=== PATIENT | female | born 1965 | race African-American/Black ===

== ENCOUNTER 2017-03-09 23:35 | Emergency (ER) | payer OTHER ==
[~2017-03-09] VITALS: Ht 162.6 cm; Wt 95.5 kg
[~2017-03-09 23:35] MED LIST: CARI350T29 PO; HYDR-762 PO; IBUP-1542 PO; PRED20TA PO; TRAM50TA2 PO
[2017-03-10 00:01] VITALS: Ht 162.6 cm; Wt 95.5 kg
[2017-03-10 03:23] LABS: URINE BLOOD (Dip) POC Negative (NEGATIVE)
[2017-03-10 03:29] LABS: ADD SCAN DIFF NO
[2017-03-10 03:31] LABS: BASOPHILS % 0.6 % (0.0-2.0); EOSINOPHILS # 0.4 10^3/ul (0.0-0.5); EOSINOPHILS % 5.7 % (0.0-7.0); HEMATOCRIT 43.8 % (37.0-47.0); HEMOGLOBIN 14.5 g/dl (12.0-16.0); LYMPHOCYTES # 2.1 10^3/ul (0.8-2.9); LYMPHOCYTES % 32.4 % (15.0-51.0); MEAN CORPUSCULAR HEMOGLOBIN 32.2 pg (29.0-33.0); MEAN CORPUSCULAR HGB CONC 33.1 g/dl (32.0-37.0); MEAN CORPUSCULAR VOLUME 97.1 fl (82.0-101.0); MEAN PLATELET VOLUME 10.3 fl (7.4-10.4); MONOCYTE # 0.4 10^3/ul (0.3-0.9); MONOCYTES % 6.5 % (0.0-11.0); NEUTROPHIL # 3.5 10^3/ul (1.6-7.5); NEUTROPHILS % 54.6 % (39.0-77.0); PLATELET COUNT 320 10^3/UL (140-415); RED BLOOD COUNT 4.51 10^6/ul (4.20-5.40); RED CELL DISTRIBUTION WIDTH 12.7 % (11.5-14.5); WHITE BLOOD COUNT 6.3 10^3/ul (4.8-10.8)
[2017-03-10 03:34] LABS: ALBUMIN 4.5 g/dl (3.3-4.9); CHLORIDE 107 mmol/L (97-110); INR 0.91; PROTIME 12.2 Sec (12.2-14.2); SODIUM 145 mmol/L (135-144)
[2017-03-10 03:35] LABS: PARTIAL THROMBOPLASTIN TIME 26.3 Sec (25.0-35.0); POTASSIUM 3.7 mmol/L (3.5-5.1)
[2017-03-10 03:37] LABS: ALANINE AMINOTRANSFERASE 44 IU/L (13-69); ALBUMIN/GLOBULIN RATIO 1.25; ALKALINE PHOSPHATASE 129 IU/L (42-121); ANION GAP 16 (8-16); ASPARTATE AMINO TRANSFERASE 47 IU/L (15-46); BILIRUBIN,INDIRECT 0.6 mg/dl (0-1.1); BILIRUBIN,TOTAL 0.6 mg/dl (0.2-1.3); BLOOD UREA NITROGEN 18 mg/dl (7-20); CARBON DIOXIDE 26 mmol/L (21-31); CREATININE 0.77 mg/dl (0.44-1.00); TOTAL PROTEIN 8.1 g/dl (6.1-8.1)
[2017-03-10 03:38] LABS: CALCIUM 9.2 mg/dl (8.4-10.2); GLUCOSE 108 mg/dl (70-220)
[2017-03-10 03:47] LABS: B-TYPE NATRIURETIC PEPTIDE 88 PG/ML (0-125)
[2017-03-10 04:07] LABS: TROPONIN-I < 0.012 ng/ml (0.00-0.12)
--- NOTE | 2017-03-10 04:09 | RADRPT ---
PROCEDURE: XR Chest. CLINICAL INDICATION: Chest Pain. TECHNIQUE: Portable single view of the chest COMPARISON: None. FINDINGS: The heart size and pulmonary vascularity are top normal. Lung volumes are slightly reduced but no d efinite focal infiltrate or pleural effusion is seen. No bony abnormality is seen. IMPRESSION: Shallow lung inflation. Top normal heart size and pulmonary vascularity. RPTAT: HLBE Yu Perry, Physician Date Time Electronically viewed and signed by Yu Perry, Physician on 03/10/2017 04:09 JIMBO/
--- NOTE | 2017-03-10 05:43 | ERD ---
ER Documentation Chief Complaint Date/Time DATE: 03/10/17 TIME: 05:41 Chief Complaint intermittent chest pain x 2 weeks worst today HPI 52-year-old female complains of lower back pain that is acute on chronic in nature. Chest pain that was noted in triage was falls. Patient denies any active chest pain or any chest pain at any time the past 2 weeks but does complain of back pain on and off for the past 2 or 3 days is gotten progressively worse. Denies bowel or bladder incontinence. Denies any other current issues. Pain is mild to moderate intensity patient is very lethargic upon arrival to the ER is obvious using pain medications at home to which he admits ROS All systems reviewed and are negative except as per history of present illness. Medications Home Meds Active Scripts Ibuprofen* (Motrin*) 600 Mg Tab, 600 MG PO Q6, #30 TAB Prov:ISABELL HUANG MD 04/01/16 Prednisone* (Prednisone*) 20 Mg Tab, 40 MG PO DAILY for 4 Days, TAB Prov:ISABELL HUANG MD 04/01/16 Carisoprodol* (Carisoprodol*) 350 Mg Tablet, 350 MG PO Q8 Y for MUSCLE SPASMS, # 20 TAB Prov:ISABELL HUANG MD 04/01/16 Tramadol HCl (Tramadol HCl) 50 Mg Tablet, 50 MG PO Q4 Y for PAIN, #20 TAB Prov:ISABELL HUANG MD 04/01/16 Hydrocodone Bit-Acetaminophen* ([place]*) 10-325 Mg Tablet, 1 TAB PO Q6 Y for PAIN , #7 TAB Prov:MARINE PEREIRA MD 10/13/15 Allergies Allergies: Coded Allergies: No Known Allergy (Unverified , 12/25/12) PMhx/Soc History of Surgery: No Anesthesia Reaction: No Hx Neurological Disorder: No Hx Respiratory Disorders: No Hx Cardiac Disorders: No Hx Psychiatric Problems: Yes (anxiety, depression) Hx Miscellaneous Medical Probl: Yes (sciatica) Hx Alcohol Use: Yes (occasionally) Hx Substance Use: No Hx Tobacco Use: Yes (daily) Smoking Status: Current every day smoker Physical Exam Vitals Vital Signs Date Time Temp Pulse Resp B/P Pulse Ox O2 Delivery O2 Flow Rate FiO2 03/10/17 05:30 97.9 73 16 188/93 Room Air 03/10/17 00:01 97.8 84 20 139/91 98 Physical Exam Const: [] Head: Atraumatic Eyes: Normal Conjunctiva ENT: Normal External Ears, Nose and Mouth. Neck: Full range of motion..~ No meningismus. Resp: Clear to auscultation bilaterally Cardio: Regular rate and rhythm, no murmurs Abd: Soft, non tender, non distended. Normal bowel sounds Skin: No petechiae or rashes Back: No midline or flank tenderness Ext: No cyanosis, or edema Neur: Awake and alert Psych: Normal Mood and Affect Result Diagram: 03/10/17 0300 03/10/17 0300 Results 24 hrs Laboratory Tests Test 03/10/17 03:00 03/10/17 03:24 White Blood Count 6.310^3/ul Red Blood Count 4.5110^6/ul Hemoglobin 14.5g/dl Hematocrit 43.8% Mean Corpuscular Volume 97.1fl Mean Corpuscular Hemoglobin 32.2pg Mean Corpuscular Hemoglobin Concent 33.1g/dl Red Cell Distribution Width 12.7% Platelet Count 70471^3/UL Mean Platelet Volume 10.3fl Neutrophils % 54.6% Lymphocytes % 32.4% Monocytes % 6.5% Eosinophils % 5.7% Basophils % 0.6% Nucleated Red Blood Cells % 0.0/100WBC Neutrophils # 3.510^3/ul Lymphocytes # 2.110^3/ul Monocytes # 0.410^3/ul Eosinophils # 0.410^3/ul Basophils # 0.010^3/ul Nucleated Red Blood Cells # 0.010^3/ul Prothrombin Time 12.2Sec Prothrombin Time Ratio 1.0 INR International Normalized Ratio 0.91 Activated Partial Thromboplast Time 26.3Sec Sodium Level 145mmol/L Potassium Level 3.7mmol/L Chloride Level 107mmol/L Carbon Dioxide Level 26mmol/L Anion Gap 16 Blood Urea Nitrogen 18mg/dl Creatinine 0.77mg/dl Glucose Level 108mg/dl Calcium Level 9.2mg/dl Total Bilirubin 0.6mg/dl Direct Bilirubin 0.00mg/dl Indirect Bilirubin 0.6mg/dl Aspartate Amino Transf (AST/SGOT) 47IU/L Alanine Aminotransferase (ALT/SGPT) 44IU/L Alkaline Phosphatase 129IU/L Troponin I < 0.012ng/ml B-Type Natriuretic Peptide 88PG/ML Total Protein 8.1g/dl Albumin 4.5g/dl Globulin 3.60g/dl Albumin/Globulin Ratio 1.25 Bedside Urine pH (LAB) 5.5 Bedside Urine Protein (LAB) Negative Bedside Urine Glucose (UA) Negative Bedside Urine Ketones (LAB) Trace Bedside Urine Blood Negative Bedside Urine Nitrite (LAB) Negative Bedside Urine Leukocyte Esterase (L Negative Procedures/MDM EKG: Rate/Rhythm: [Normal Sinus Rhythm] QRS, ST, T-waves: [No changes consistent w/ acute ischemia] Impression: [No evidence of ischemia or arrhythmia] Chest X-ray 1V Interpreted by me: Soft Tissue: No acute abnormalities Bones: No acute abnormalities Mediastinum/Cardiac Silhouette/Lungs: [No acute abnormalities] Patient's thoracic symptoms have stabilized while in the department and are stable for outpatient follow up. Exam and work up not consistent w/ ischemia, arrhythmia, PE or dissection. Patient's musculoskeletal symptoms have stabilized while they have been evaluated in the department and are appropriate for outpatient work up. No evidence of cauda equina, cord compression, infiltrative, or infectious etiology. Departure Diagnosis: Primary Impression: Back pain Back pain location: low back pain Chronicity: chronic Back pain laterality : unspecified Sciatica presence: unspecified whether sciatica present Qualified Code: M54.5 - Chronic low back pain, unspecified back pain laterality , with sciatica presence unspecified Condition: Stable RENU IGNACIO Mar 10, 2017 05:43
[2017-03-10 06:28] VITALS: BP 163/98; PULSE 73; RESP 16; TEMP 98
== END 2017-03-10 06:29 | disposition home or self-care (01) ==
LOC: E/R 23:35
DX: M54.5 Low back pain (principal); F17.210 Nicotine dependence, cigarettes, uncomplicated; R40.2142 Coma scale, eyes open, spontaneous, at arrival to emergency department; R40.2252 Coma scale, best verbal response, oriented, at arrival to emergency department; R40.2362 Coma scale, best motor response, obeys commands, at arrival to emergency department
CPT/HCPCS: 36415; 71010; 80053; 81003; 83880; 84484; 85025; 85610; 85730; 93005; Z7502